=== PATIENT | female | born 1935 | race Caucasian/White ===

== ENCOUNTER → 2017-03-09 | Outpatient (CLI) | payer MEDICARE, BC | END | disposition home or self-care (01) | DX: Z51.81 Encounter for therapeutic drug level monitoring (principal); Z79.899 Other long term (current) drug therapy ==

== ENCOUNTER 2017-04-18 08:44 | Emergency (ER) | payer MEDICARE, BC ==
--- NOTE | 2017-04-18 15:09 | ER ---
ADMIT: 04/18/2017 RM/LOC: ER [facility] MR#: [id number] [place], [place] [id number] PATSY PEÑALOZA [address] [facility] [place] [id number] Emergency Room Report SEX: F AGE: 81 : 1935 DATE: 04/18/2017 ADDENDUM: 81-year-old female, came in slipping and falling. She is on Coumadin because of atrial fibrillation that is why she was made a partial trauma. Main complaint is she got lump on her forehead. No loss of consciousness. No hip pain or other associated findings. PAST MEDICAL HISTORY: Significant disease; AFib, seizure disorder, status post CVA, diabetes, hypertension, hypercholesterolemia. MEDICATIONS: Coumadin. Please see list. ALLERGIES: TYLENOL. FAMILY SOCIAL HISTORY: Diabetes and hypertension. Not a smoker. REVIEW OF SYSTEMS: CONSTITUTIONAL: Negative. RESPIRATORY: Negative. ENDOCRINE: I do believe she is treated for hyperlipidemia and hypothyroidism along with her diabetes. CARDIOVASCULAR: She does have a little bit of hypertension. GI: Negative though she has had a history of polyps and gallbladder out in the past. INTEGUMENT: Mastectomy. I do not see a diagnosis of Coumadin though. Rest of review of systems essentially negative. PHYSICAL EXAM: GENERAL: Does not appear to be acutely distressed. VITAL SIGNS: Stable. Afebrile. HEENT: Little hematoma, forehead about 2 cm diameter. No other lacerations. She has a few excoriations on her cheek that do not require stitches. NECK: Supple, no masses. RESPIRATORY: No retracting. HEART: Regular rate and rhythm. GI: Abdomen is nontender, no rebound, guarding, rigidity or organomegaly. SKIN: Warm, pink and dry. EXTREMITIES: Range of motion is grossly intact in the upper and lower extremities. UPPER CASER: Alert and oriented. Motor and sensory functions are intact. ADMIT: 04/18/2017 RM/LOC: [facility] MR#: [id number] [facility] [address] [id number] PATSY PEÑALOZA [address] [facility] [place] [address] Emergency Room Report SEX: F AGE: 81 : 1935 LABORATORY DATA: INR is 2.79. CBC; chemistry is negative. CT of the head is negative. DIAGNOSES: 1. Contusion of forehead. 2. Multiple medical problems. 3. Fall. TREATMENT: She does have a walker, reinforced her using that. She has family here with her. Ice to forehead. Not changing any medication and she should follow up as needed. CONDITION ON DISCHARGE: Good. Diego Gusman MD/ aylin JOB #: [id number] CC: Diego Gusman MD, Attending Physician
== END 2017-04-18 10:10 | disposition home or self-care (01) ==
LOC: ER 08:44
DX: S00.83XA Contusion of other part of head, initial encounter (principal); G40.909 Epilepsy, unspecified, not intractable, without status epilepticus; Z86.73 Personal history of transient ischemic attack (TIA), and cerebral infarction without residual deficits; E11.9 Type 2 diabetes mellitus without complications; I10 Essential (primary) hypertension; E78.00 Pure hypercholesterolemia, unspecified; Z79.01 Long term (current) use of anticoagulants; Z88.6 Allergy status to analgesic agent; Z79.84 Long term (current) use of oral hypoglycemic drugs; Z79.899 Other long term (current) drug therapy; W01.0XXA Fall on same level from slipping, tripping and stumbling without subsequent striking against object, initial encounter